=== PATIENT | female | born 1980 | race Two or more races ===

== ENCOUNTER 2018-01-21 13:02 | Emergency (ER) | payer SELFPAY ==
[~2018-01-21] VITALS: Ht 172.7 cm; Wt 103.0 kg
[2018-01-21 13:22] VITALS: BP 124/72
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
[2018-01-21] MEDS ORDERED: Acetaminophen 500mg (ES) tab ORAL ONE (13:30)
[2018-01-21] MEDS ORDERED: Methocarbamol 500mg tab ORAL ONE (13:30)
[2018-01-21] MEDS ORDERED: TYLENOL EXTRA500 MG ORAL (13:31)
[2018-01-21] MEDS ORDERED: LIDOCAINE700 M1 TP (13:31)
[2018-01-21] MEDS ORDERED: ROBAXIN500 MG PO (13:31)
--- NOTE | 2018-01-21 15:19 | Diagnostic Imaging Report ---
Indication: Back pain Comparison: None Findings: 3 views of the lumbar spine were obtained. No acute fracture or malalignment is identified. Vertebral body heights and disk spaces are well maintained. Posterior elements are unremarkable. Impression: No acute findings.
== END 2018-01-21 15:30 | disposition home or self-care (01) ==
LOC: EMR 13:40
DX: M54.5 Low back pain (principal)
CPT/HCPCS: 72110; 99284